=== PATIENT | female | born 1995 | race Caucasian/White ===

== ENCOUNTER 2020-01-03 17:37 | Emergency (ER) | payer MEDICAID, SELFPAY ==
--- NOTE | ~2020-01-03 | CT_ITS ---
EXAMINATION: CTA chest PE abdomen pel DATE: 01/03/2020 20:09 INDICATION: Chest pain, elevated d-dimer. Flank pain, dysuria. TECHNIQUE: Computed tomography angiography (CTA) of the chest was performed with 100 mL Omnipaque-350 intravenous contrast timed to evaluate the pulmonary arteries. Coronal maximum intensity projection 3D-reconstructions were created by the technologist. Automated exposure control and iterative reconst ruction technique were employed. Exam dose: 448.59 mGy-cm total exam DLP. COMPARISON: 01/03/2020 2 view chest FINDINGS: There is diagnostic contrast enhancement of the pulmonary arteries and no evidence of pulmo nary embolism. No thoracic aortic aneurysm or dissection. Normal heart size. No pericardial or pleural effusion. No hilar or mediastinal mass lesion or lymphadenopathy. The lungs are clear of infiltrate or consolidation. Diffuse hepatic steatosis. Status post cholecystectomy. No bile duct or pancreatic duct dilatation. No hepatic, splenic, pancreatic, adrenal or renal space-occupying mass lesion is evident. Normal caliber of the abdominal aorta. No intraperitoneal or retroperitoneal or pelvic mass lesion or adenopathy or ascites. The urinary bladder is unremarkable. No bowel obstruction, bowel wall thickening, pneumatosis or intraperitoneal free air. Included skeletal structures are unremarkable. IMPRESSION: Hepatic steatosis Status post cholecystectomy Reviewed, dictated and finalized at [facility] Reviewed, dictated and finalized at [facility].
--- NOTE | ~2020-01-03 | XR_ITS ---
XR chest 2V DATE: 01/03/2020 19:21 INDICATION: Chest pain for one day, midsternal area, radiating to back TECHNIQUE: PA and lateral views COMPARISON: None FINDINGS: Bilateral hyperinflation. No pulmonary infiltrate or consolidation, pleural effusion or pul monary mass or congestion or pneumothorax. Normal heart size. No hilar or mediastinal enlargement. Surgical clips, right upper quadrant, consistent with cholecystectomy. Included skeletal structures are unremarkable. IMPRESSION: Bilateral hyperinflation; otherwise no active cardiopulmonary disease Status post cholecystectomy Reviewed, dictated and finalized at [facility]. IMPRESSION: Bilateral hyperinflation; otherwise no active cardiopulmonary disea se Status post cholecystectomy
[2020-01-03 17:45] VITALS: BP 127/88; PULSE 100; RESP 14; TEMP 36.8; O2SAT 100
[2020-01-03 18:24] LABS: Basophils Percent Auto 0.2 % (0.2-1.2); Eosinophils Percent Auto 0.9 % (0-4.4); Hemoglobin 11.7 g/dL (12.0-15.0); Immature Granulocyte Absolute 0.01 K/mm3 (0.00-0.031); Immature Granulocyte Percent A 0.2 % (0-0.5); Lymphocytes Absolute Auto 1.41 K/mm3 (0.9-3.2); Lymphocytes Percent Auto 33.3 % (18.3-44.2); Mean Corpuscular HGB Conc 34.4 g/dl (32-36); Mean Corpuscular Hemoglobin 30.7 pg (26-34); Mean Corpuscular Volume 89.2 fl (80-100); Mean Platelet Volume 9.9 fl (7.4-10.4); Monocytes Absolute Auto 0.3 K/mm3 (0.1-0.6); Monocytes Percent Auto 6.1 % (2.6-8.5); Neutrophils Absolute Auto 2.5 K/mm3 (1.3-6.7); Neutrophils Percent Auto 59.3 % (45.5-73.1); Platelet Count Result 261 k/mm3 (150-375); Red Blood Count 3.81 M/mm3 (4.2-5.4); Red Cell Distribution Width 13.2 % (11.5-14.5); White Blood Count 4.2 K/mm3 (4.5-10.0)
[2020-01-03 18:29] LABS: Add Urine Microscopic? YES; Appearance Urine Clear (Clear); Bacteria Urine 1+ /hpf; Bilirubin Urine Negative (Negative); Blood Urine Negative (Negative); Color Urine Amber (Yellow); Glucose Urine UA Negative (Negative); Ketones Urine Trace mg/dL (Negative); Leukocyte Esterase Ur Negative LEU/UL (Negative); Mucus Urine Rare /lpf; Nitrate Urine Positive (Negative); Protein Urine Negative (Negative); RBC Urine 0-2 /hpf (0-2); Specific Grav Ur 1.017 (1.001-1.035); Squamous Epithelial Cell Urine Many /hpf (Few); WBC Urine 0-3 /hpf
[2020-01-03 18:39] LABS: Alanine Aminotransferase 63 U/L (4-35); Albumin Level 4.2 g/dL (3.5-5.1); Alkaline Phosphatase 80 U/L (38-126); Anion Gap 6 mmol/L (8-16); Aspartate Amino Transferase 51 U/L (14-36); Bilirubin,Total 0.4 mg/dL (0.2-1.3); Blood Urea Nitrogen 11 mg/dL (7-17); Calcium 9.1 mg/dL (8.4-10.2); Carbon Dioxide 25 mmol/L (22-30); Chloride 104 mmol/L (98-107); Estimated CRCL calculation 81 ml/min; Estimated Glomerular Filt Rate > 60; Glucose 83 mg/dL (65-105); Lipase 41 U/L (23-300); Potassium 4.1 mmol/L (3.4-5.0); Sodium 135 mmol/L (137-145)
--- NOTE | 2020-01-03 19:05 | ED.BACK ---
HPI - Back Pain/Injury General Chief Complaint: Back Pain/Injury <Amalia Segura PA-C - Last Filed: 01/03/20 21:30> Stated Complaint: Abdominal pain with nausea, <SOLANGE Flores Last Filed: 01/03/20 21:30> Time Seen by Provider: 01/03/20 17:48 <SOLANGE Flores Last Filed: 01/03/20 21:30> Source: patient <SOLANGE Flores Last Filed: 01/03/20 21:30> Mode of arrival: ambulatory <SOLANGE Flores Last Filed: 01/03/20 21:30> Limitations: no limitations <SOLANGE Flores Last Filed: 01/03/20 21:30> History of Present Illness HPI Narrative: This is a 24 year old female that presents to the ER for bilateral flank pain x 3 days. No known injury or trauma. Associated with dysuria and nausea. Reports history of interstitial cystitis and endometriosis. Reports this morning she started to develop chest pain. Reports the pain is sharp. Denies fever, shortness of breath, cough, vomiting, or hematuria. <SOLANGE Flores Last Filed: 01/03/20 21:30> Related Data Home Medications: Home Medications Medication Instructions Recorded Confirmed estradiol 0.5 mg PO DAILY 01/03/20 fesoterodine [Toviaz] 4 mg PO DAILY PRN 01/03/20 hydrocodone-acetaminophen 1 tablet PO Q6H PRN 01/03/20 hydroxyzine HCl 50 mg PO HS 01/03/20 lurasidone [Latuda] 40 mg PO QPM 01/03/20 <SOLANGE Flores Last Filed: 01/03/20 21:30> Allergies/Adverse Reactions: Allergies Allergy/AdvReac Type Severity Reaction Status Date / Time ciprofloxacin [From Cipro] Allergy Rash Verified 01/03/20 17:50 Penicillins Allergy Rash Verified 01/03/20 17:50 pentosan polysulfate sodium Allergy Loss of Verified 01/03/20 17:50 [From Elmiron] Consciousness Sulfa (Sulfonamide Allergy Rash Verified 01/03/20 17:50 Antibiotics) <Amalia Segura PA-C - Last Filed: 01/03/20 21:30> Review of Systems Review of Systems: Narrative: CONSTITUTIONAL: Denies fever CARDIOVASCULAR: Reports chest pain RESPIRATORY: Denies cough or dyspnea. GASTROINTESTINAL: Reports abdominal pain, nausea. Denies vomiting, or diarrhea. GENITOURINARY: Reports dysuria. Denies hematuria. MUSCULOSKELETAL: Reports back pain, joint pain, and myalgia. <Amalia Segura PA-C - Last Filed: 01/03/20 21:30> All systems reviewed & are unremarkable except as noted in HPI and below <Amalia Segura PA-C - Last Filed: 01/03/20 21:30> PMFSH Past Medical History Medical History: Medical History (Updated 01/03/20 @ 21:27 by Amalia Segura PA-C) History of endometriosis Interstitial cystitis <Amalia Segura PA-C - Last Filed: 01/03/20 21:30> Surgical History Surgical History: Surgical History (Updated 01/03/20 @ 19:08 by Amalia Segura PA-C) History of hysterectomy <mAalia Segura PA-C - Last Filed: 01/03/20 21:30> Social History Social History: Social History Gender identity (if verbalized by the patient): Female <Amalia Segura PA-C - Last Filed: 01/03/20 21:30> Exam Narrative: Exam Narrative: GENERAL: Well-appearing, well-nourished, and in no acute distress. HEAD: Normocephalic, atraumatic. EYES: EOMI. CHEST: Clear to auscultation. No respiratory distress. No wheezes rales or rhonchi HEART: Regular rate and rhythm. No murmur heard. Normal peripheral pulses. ABDOMEN: Soft, nontender, nondistended, normal active bowel sounds. Bilateral CVA tenderness BACK: No midline spinal tenderness EXTREMITIES: Normal range of motion. No edema. SKIN: Warm, dry, no rash. NEURO: No focal deficits. Alert and oriented x3. Normal gait PSYCH: Normal mood and affect <Amalia Segura PA-C - Last Filed: 01/03/20 21:30> Course Vital Signs Vital signs: Vital Signs Temperature 36.8 C 01/03/20 17:45 Pulse Rate 100 01/03/20 17:45 Respiratory Rate 14 01/03/20 17:45 Blood Pressure 127/88 01/03/20 17:45 Pulse Oximetry 100 01/03/20 17:45 Temperature
--- NOTE | 2020-01-03 19:08 | PC.NURSE ---
Called lab to add on PT INR, PTT, D Dimer and Trop I Baseline
[2020-01-03 19:27] LABS: Partial Thromboplastin Time 29.7 SECONDS (22.3-36.8); Prothrombin Time 13.1 Seconds (11.1-14.7)
[2020-01-03] MEDS: SODIUM CHLORIDE 0.9% IV 1,000 ML 999 ML IV CONT (19:29)
[2020-01-03 19:30] LABS: D Dimer 1.05 ug/mL (<0.48)
[2020-01-03] MEDS: ONDANSETRON INJ 4 MG/2 ML VIAL IV PUSH (19:30)
[2020-01-03] MEDS: FAMOTIDINE 20 MG/2 ML VIAL IV PUSH (19:30)
[2020-01-03 19:32] VITALS: BP 117/74; PULSE 76; RESP 20; O2SAT 98
[2020-01-03 19:33] LABS: Troponin I < 0.012 ng/mL (0.000-0.034)
[2020-01-03 19:36] VITALS: BP 118/57; PULSE 90; RESP 20; O2SAT 100
--- NOTE | 2020-01-03 19:36 | ECG_ITS ---
Measurements Intervals [place] Rate: 82 P: 63 MA: 154 QRS: 64 QRSD: 88 T: 45 QT: 407 QTc: 476 Interpretive Statements SINUS RHYTHM BASELINE ARTIFACT- I, III, AVR, AVL, V1 NORMAL ECG Electronically Signed On 01-04-2020 6:41:29 CDT by Jarad Garcia D.O.
[2020-01-03] MEDS: MORPHINE SULFATE 4 MG/ML INJ IV PUSH (20:18)
[2020-01-03 20:30] VITALS: BP 118/57; PULSE 78; RESP 20; O2SAT 100
[2020-01-03 21:59] VITALS: BP 120/60; PULSE 74; RESP 20; O2SAT 100
== END 2020-01-03 22:02 | disposition home or self-care (01) ==
PROVIDERS: Emergency Medicine; Physician Assistant; Emergency Provider Emergency Medicine
DX: N10 Acute pyelonephritis (principal); R07.9 Chest pain, unspecified; N80.9 Endometriosis, unspecified; K76.0 Fatty (change of) liver, not elsewhere classified
CPT/HCPCS: 36415; 71046; 71275; 74177; 80053; 81001; 83690; 84484; 85025; 85380; 85610; 85730; 87086; 87088; 93005; 96361; 96365; 96368; 96375; 99284; J0131; J0696; J2270; J2405; J7030; Q9967

== ENCOUNTER 2020-01-09 18:45 | Emergency (ER) | payer MEDICAID, SELFPAY ==
--- NOTE | ~2020-01-09 | US_ITS ---
EXAMINATION: US pelvic complete w TV EXAM DATE: 01/09/2020 21:50 INDICATION: Pelvic pain, clinical concern for torsion. Hysterectomy and right oophorectomy. TECHNIQUE: Pelvic transabdominal and transvaginal sonogram was performed. There are multiple graysca le and Doppler images available for interpretation. There is no prior study for comparison. FINDINGS: The uterus and right ovary are not identified. The vaginal cuff is unremarkable. No right a dnexal mass. Left adnexa: The ovary measures 3.0 x 2.3 x 2.0 cm and is morphologically normal. Ovarian vascular fl ow confirmed. IMPRESSION: 1. Normal left ovary. Reviewed, dictated and finalized at [facility]. IMPRESSION: 1. Normal left ovary.
[2020-01-09 18:59] VITALS: BP 121/76; PULSE 112; RESP 17; TEMP 36.9; O2SAT 100
--- NOTE | 2020-01-09 19:29 | ED.ABDPAIN ---
HPI - Abdominal Pain General Chief Complaint: Abdominal Pain Stated Complaint: abd pain Time Seen by Provider: 01/09/20 19:07 History of Present Illness HPI narrative: 24 yo female w/ endometriosis, ovarian torsion, interstitial cystitis. She has chronic abdominal pain issues. Lower abdominal pain worse for the past 2 weeks. Seen here 6 days ago and found to have a UTI. She finished her antibiotics and reports no symptom improvement. SHe had a negative abdominal CT at that time. Related Data Home Medications Medication Instructions Recorded Confirmed estradiol 0.5 mg PO DAILY 01/03/20 fesoterodine [Toviaz] 4 mg PO DAILY PRN 01/03/20 hydrocodone-acetaminophen 1 tablet PO Q6H PRN 01/03/20 hydroxyzine HCl 50 mg PO HS 01/03/20 lurasidone [Latuda] 40 mg PO QPM 01/03/20 cyclobenzaprine mg 01/09/20 Allergies Allergy/AdvReac Type Severity Reaction Status Date / Time ciprofloxacin [From Cipro] Allergy Rash Verified 01/09/20 19:54 Penicillins Allergy Rash Verified 01/09/20 19:54 pentosan polysulfate sodium Allergy Loss of Verified 01/09/20 19:54 [From Elmiron] Consciousness Sulfa (Sulfonamide Allergy Rash Verified 01/09/20 19:54 Antibiotics) Review of Systems Review of Systems: All systems reviewed & are unremarkable except as noted in HPI and below Constitutional: Constitutional: Denies fever(s) ENT: Denies dizziness Cardiovascular: Cardiovascular: Denies chest pain Respiratory: Respiratory: Denies dyspnea Gastrointestinal: Gastrointestinal: Reports abdominal pain, Denies constipation, Denies diarrhea, Reports nausea and Denies vomiting Genitourinary: Genitourinary: Reports nocturia and Reports dysuria Neurologic: Denies weakness [facility] Past Medical History Medical History History of endometriosis Interstitial cystitis Surgical History Surgical History History of hysterectomy Social History Social History Gender identity (if verbalized by the patient): Female Exam Const: General: healthy appearing, no acute distress and alert Orientation/consciousness: patient oriented x3 HENMT: Head: normal to inspection Neck: Neck: normal visual inspection and no lymphadenopathy Chest: Chest palpation & inspection: no tenderness Resp: Effort & Inspection: normal respiratory effort Auscultation: clear to auscultation bilaterally, no rales, no rhonchi and no wheezes Cardio: Jugular venous distension: no JVD Rate: regular rate Rhythm: regular rhythm Heart sounds: no murmurs GI: Inspection: non-distended GI Palp: Yes Soft to palpation and Yes Tenderness to palpation present (GI) (suprapubic) Skin: General skin exam: normal color Neuro: General: patient oriented x3, moves all extremities, no focal motor deficits and CN's II-XI intact bilaterally Speech: normal speech Extrem: General: no edema Psych: Appearance: well kempt Affect: normal affect Course Vital Signs Vital signs: Vital Signs Temperature 36.9 C 01/09/20 18:59 Pulse Rate 112 H 01/09/20 18:59 Respiratory Rate 17 01/09/20 18:59 Blood Pressure 121/76 01/09/20 18:59 Pulse Oximetry 100 01/09/20 18:59 Temperature 36.9 C 01/09/20 18:59 Pulse Rate 88 01/09/20 22:15 Respiratory Rate 14 01/09/20 22:15 Blood Pressure 131/74 01/09/20 22:15 Pulse Oximetry 97 01/09/20 22:15 MDM - Abdominal Pain MDM Narrative Medical decision making narrative: Her pain is most likely due to her chronic issues. given her h/o torsion and only having 1 remaining ovary this is definitely a concern. I will obtain US to rule out torsion. She had a negative abdominal CT 6 days ago, so I do not think I will repeat it at this time . Medical Records Attestation: I reviewed the patient's medical records. Lab Data Attestation: I reviewed the patient's l
[2020-01-09 19:30] LABS: Basophils Percent Auto 0.3 % (0.2-1.2); Eosinophils Absolute Auto 0.1 K/mm3 (0-0.3); Hemoglobin 13.6 g/dL (12.0-15.0); Immature Granulocyte Absolute 0.01 K/mm3 (0.00-0.031); Immature Granulocyte Percent A 0.2 % (0-0.5); Lymphocytes Absolute Auto 1.63 K/mm3 (0.9-3.2); Lymphocytes Percent Auto 26.3 % (18.3-44.2); Mean Corpuscular Hemoglobin 30.6 pg (26-34); Mean Corpuscular Volume 90.1 fl (80-100); Mean Platelet Volume 10.1 fl (7.4-10.4); Monocytes Absolute Auto 0.3 K/mm3 (0.1-0.6); Monocytes Percent Auto 4.8 % (2.6-8.5); Neutrophils Absolute Auto 4.2 K/mm3 (1.3-6.7); Neutrophils Percent Auto 67.4 % (45.5-73.1); Platelet Count Result 299 k/mm3 (150-375); Red Blood Count 4.44 M/mm3 (4.2-5.4); Red Cell Distribution Width 13.1 % (11.5-14.5); White Blood Count 6.2 K/mm3 (4.5-10.0)
[2020-01-09 19:32] LABS: Add Urine Microscopic? NO; Appearance Urine Clear (Clear); Bilirubin Urine Negative (Negative); Blood Urine Negative (Negative); Color Urine Yellow (Yellow); Glucose Urine UA Negative (Negative); Ketones Urine Negative (Negative); Leukocyte Esterase Ur Negative LEU/UL (Negative); Nitrate Urine Negative (Negative); Protein Urine Negative (Negative); Specific Grav Ur 1.019 (1.001-1.035); Urobilinogen Urine Negative mg/dL (<2.0)
[2020-01-09] MEDS: KETOROLAC 30 MG/ML VIAL (*BKC) IV PUSH (19:41)
[2020-01-09 19:42] LABS: Alanine Aminotransferase 47 U/L (4-35); Albumin Level 5.1 g/dL (3.5-5.1); Alkaline Phosphatase 86 U/L (38-126); Anion Gap 10 mmol/L (8-16); Aspartate Amino Transferase 46 U/L (14-36); Bilirubin,Total 0.6 mg/dL (0.2-1.3); Blood Urea Nitrogen 16 mg/dL (7-17); Calcium 9.8 mg/dL (8.4-10.2); Carbon Dioxide 26 mmol/L (22-30); Chloride 103 mmol/L (98-107); Estimated CRCL calculation 91 ml/min; Estimated Glomerular Filt Rate > 60; Glucose 105 mg/dL (65-105); Lipase 53 U/L (23-300); Potassium 4.1 mmol/L (3.4-5.0); Sodium 139 mmol/L (137-145)
[2020-01-09] MEDS: SODIUM CHLORIDE 0.9% IV 1,000 ML 999 ML IV CONT (19:44)
--- NOTE | 2020-01-09 20:35 | PC.NURSE ---
Pt. requesting pain medications. ERP notified. No further orders at this time.
[2020-01-09 20:36] VITALS: BP 104/51; PULSE 75; RESP 19; O2SAT 100
[2020-01-09 21:00] VITALS: BP 112/69; PULSE 80; RESP 19; O2SAT 97
[2020-01-09 22:15] VITALS: BP 131/74; PULSE 88; RESP 14; O2SAT 97
== END 2020-01-09 22:15 | disposition home or self-care (01) ==
PROVIDERS: Emergency Provider Emergency Medicine
DX: R10.32 Left lower quadrant pain (principal); R10.31 Right lower quadrant pain; G89.29 Other chronic pain; N80.9 Endometriosis, unspecified
CPT/HCPCS: 36415; 76830; 76856; 80053; 81003; 81025; 83690; 85025; 96361; 96374; 99284; J1885; J7030